=== PATIENT | female | born 1965 | race Caucasian/White ===

== ENCOUNTER 2021-11-17 08:16 | Outpatient (CLI) | payer BC | END 2021-11-17 08:17 | disposition home or self-care (01) | LOC: BICMAMMO 08:16 | PROVIDERS: ATTEND Student in an Organized Health Care Education/Training Program | DX: Z12.31 Encounter for screening mammogram for malignant neoplasm of breast (principal); Z80.3 Family history of malignant neoplasm of breast | CPT/HCPCS: 77063; 77067 ==

== ENCOUNTER 2022-01-06 13:04 | Outpatient (CLI) | payer BC | END 2022-01-06 13:05 | disposition home or self-care (01) | LOC: BICULT 13:04 | PROVIDERS: ATTEND Student in an Organized Health Care Education/Training Program | DX: E01.0 Iodine-deficiency related diffuse (endemic) goiter (principal); E04.1 Nontoxic single thyroid nodule | CPT/HCPCS: 76536 ==

== ENCOUNTER → 2023-01-10 | Day surgery (SDC) | payer BC ==
[~2023-01-10] MED LIST: Lidocaine 1% PF 5 ML VIAL ONE; Sodium Bicarbonate 2.5 MEQ/5 ML VIAL ONE
== END ==
LOC: ULT 12:46
PROVIDERS: ATTEND Student in an Organized Health Care Education/Training Program
DX: E04.1 Nontoxic single thyroid nodule (principal)
CPT/HCPCS: 10005; 88173; 88305

== ENCOUNTER 2024-02-08 07:48 | Outpatient (CLI) | payer BC | END 2024-02-08 07:49 | disposition home or self-care (01) | LOC: BICMAMMO 07:48 | PROVIDERS: ATTEND Family Medicine | DX: N63.13 Unspecified lump in the right breast, lower outer quadrant (principal) | CPT/HCPCS: G0279 ==

== ENCOUNTER 2025-03-19 08:44 | Outpatient (CLI) | payer BC | END 2025-03-19 08:45 | disposition home or self-care (01) | LOC: BICMAMMO 08:44 | PROVIDERS: ATTEND Family Medicine | DX: Z12.31 Encounter for screening mammogram for malignant neoplasm of breast (principal); Z80.3 Family history of malignant neoplasm of breast | CPT/HCPCS: 77063; 77067 ==